=== PATIENT | male | born 1975 | race Caucasian/White ===

== ENCOUNTER 2016-12-12 12:47 | Emergency (ER) | payer MEDICAID, MEDICARE ==
[2016-12-12 13:21] VITALS: BP 146/83; PULSE 86; RESP 18; TEMP 97.8; O2SAT 99
--- NOTE | 2016-12-12 13:25 | C.PDOC ---
History Of Present Illness 41 y/o male presents to ED requesting detox from Percocet last used 6 days ago. Patient states he wasnt feeling well "over the weekend" but felt better today. Pt is concerned he will start using again. No other complaints at this time. No PMH. Time Seen by Provider: 12/12/16 13:21 Chief Complaint (Nursing): Substance Abuse History Per: Patient History/Exam Limitations: no limitations Onset/Duration Of Symptoms: Days Current Symptoms Are (Timing): Still Present Suicide/Self Injury Attempted (Context): None Past Medical History Reviewed: Historical Data, Nursing Documentation, Vital Signs Vital Signs: Last Vital Signs Temp 97.8 F 12/12/16 13:18 Pulse 86 12/12/16 13:18 Resp 18 12/12/16 13:18 BP 146/83 12/12/16 13:18 Pulse Ox 99 12/12/16 16:24 - Medical History PMH: No Chronic Diseases Surgical History: No Surg Hx Family History: States: No Known Family Hx - Social History Hx Tobacco Use: Yes Hx Alcohol Use: Yes Hx Substance Use: Yes - Immunization History Hx Tetanus Toxoid Vaccination: No Hx Influenza Vaccination: No Hx Pneumococcal Vaccination: No Review Of Systems Except As Marked, All Systems Reviewed And Found Negative. Constitutional: Negative for: Fever, Chills Cardiovascular: Negative for: Chest Pain Respiratory: Negative for: Shortness of Breath Gastrointestinal: Negative for: Nausea, Vomiting Skin: Negative for: Rash Physical Exam - Physical Exam Appears: Non-toxic, No Acute Distress Skin: Warm, Dry, No Rash Head: Atraumatic, Normacephalic Eye(s): bilateral: Normal Inspection, EOMI Nose: Normal Oral Mucosa: Moist Neck: Normal ROM, Supple Chest: Symmetrical Cardiovascular: Rhythm Regular Respiratory: Normal Breath Sounds, No Accessory Muscle Use Pulses: Left Radial: Normal, Right Radial: Normal Neurological/Psych: Oriented x3 ED Course And Treatment O2 Sat by Pulse Oximetry: 99 (RA) Pulse Ox Interpretation: Normal Progress Note: No detox beds are available. Patient was given outpt follow up services Disposition - Disposition Referrals: [facility] [Outside] Disposition: HOME/ ROUTINE Disposition Time: 13:28 Condition: STABLE Additional Instructions: Call for detox bed availability : [phone]. Follow up with outpatient resources Return to ER if symptoms persist or worsen. Instructions: Opioid Dependence (ED) Forms: [facility] (Hungarian) - Clinical Impression Clinical Impression: Opioid dependence - PA / HELP DESK ASSISTANT / Resident Statement MD/DO has reviewed & agrees with the documentation as recorded. - Scribe Statement The provider has reviewed the documentation as recorded by the Marielyibjorge l Ho All medical record entries made by the Marielyibjorge l were at my direction and personally dictated by me. I have reviewed the chart and agree that the record accurately reflects my personal performance of the history, physical exam, medical decision making, and the department course for this patient. I have also personally directed, reviewed, and agree with the discharge instructions and disposition.
== END 2016-12-12 13:43 | disposition home or self-care (01) ==
LOC: C.ER 12:47
DX: F11.20 Opioid dependence, uncomplicated (principal)